=== PATIENT | female | born 1955 | race Caucasian/White ===

== ENCOUNTER 2016-11-01 20:01 | Inpatient (IN) | payer OTHER ==
[~2016-11-01] VITALS: Ht 157.5 cm; Wt 62.2 kg
[~2016-11-01 20:01] MED LIST: ESTR0.056 PO; FENO160T8 PO; PAR20T PO
[2016-11-01 20:54] LABS: Hematocrit 52.7 % (36.0-46.0); Hemoglobin 17.3 g/dL (12.2-16.2); Mean Corpuscular Hemoglobin 32.6 pg (28.0-32.0); Mean Corpuscular Hgb Conc. 32.8 g/dL (32.0-36.0); Mean Corpuscular Volume 99.6 fL (80.0-100.0); Mean Platelet Volume 9.6 fL (7.4-10.4); Platelet Count (auto) 188 10^3/uL (140-450); Red Cell Distribution Width 13.4 % (11.6-16.0); SUSPECT VIEW TRANSMISSION; White Blood Cell 18.7 10^3/uL (4.4-10.8)
[2016-11-01 21:00] LABS: Metamyelocytes % 0; Myelocytes % 0; Promyelocytes % 0; Reactive Lymphocytes 0
[2016-11-01] MEDS ORDERED: SODIUM CHLORIDE 0.9% 1,000 ML IV ONE (21:00)
[2016-11-01 21:05] LABS: Partial Thromboplastin Time 36.4 sec (22.64-33.71)
[2016-11-01 21:06] LABS: INR 1.36 (0.9-1.15)
[2016-11-01 21:10] LABS: Albumin 5.3 g/dL (3.4-5.0); BUN/Creatinine Ratio 11.7; Bilirubin, Total 0.6 mg/dL (0.2-1.0); Calcium 10.8 mg/dL (8.5-10.1); Potassium 3.5 mmol/L (3.5-5.1); Total Protein 9.7 g/dL (6.4-8.2)
[2016-11-01 21:20] LABS: B-Type Natriuretic Peptide 8.53 pg/mL (0-100)
[2016-11-01 21:22] LABS: Platelet Estimate Adequate
[2016-11-01 21:25] LABS: Temperature: 22.7 C (20.0-25.0)
[2016-11-01] MEDS ORDERED: cefTRIAXone 1GM/50ML D5W 50 ML IV ONE (23:00)
[2016-11-02 00:21] LABS: Urine RBC None Seen /hpf (0 - 4)
[2016-11-02 00:43] LABS: Urine Bilirubin Negative (Negative); Urine Color Yellow (Yellow); Urine Glucose TRACE mg/dL (Normal); Urine Granular Cast MANY /lpf (0); Urine Hyaline Cast MANY /lpf (0 - 2); Urine Ketone Negative (Negative); Urine Mucus FEW (None Seen); Urine Nitrite Negative (Negative); Urine Squamous Epithelial Cell FEW /hpf (<5); Urine Urobilinogen Normal (Negative)
[2016-11-02 00:47] LABS: Urine Blood 1+ /uL (Negative)
[2016-11-02] MEDS ORDERED: CHOL20007 PO (01:08)
[2016-11-02] MEDS ORDERED: ATOR10TA52 PO (01:08)
[2016-11-02] MEDS ORDERED: RIVA20TA PO (01:08)
[2016-11-02] MEDS ORDERED: OMEP20CA5 PO (01:08)
[2016-11-02] MEDS ORDERED: ONDANSETRON HCL 4 MG/2 ML VIAL IV ONE (01:30)
[2016-11-02] MEDS ORDERED: ONDANSETRON HCL 4 MG/2 ML VIAL IV PRN (03:30)
[2016-11-02] MEDS ORDERED: ACETAMINOPHEN 325 MG TAB PO PRN (03:30)
[2016-11-02] MEDS ORDERED: HYDROcodone-ACET 5/325MG TAB PO PRN (03:30)
[2016-11-02] MEDS ORDERED: MORPHINE SULF INJ 2 MG/ML SYRINGE 1ML IV PRN ×2 (03:30)
[2016-11-02] MEDS ORDERED: SODIUM CHLORIDE 0.9% 1,000 ML IV SCH (03:30)
[2016-11-02] MEDS ORDERED: TEMAZEPAM 15 MG CAP PO PRN (03:30)
[2016-11-02] MEDS ORDERED: NITROGLYCERIN 0.4 MG SL TAB SL PRN (03:30)
[2016-11-02] MEDS ORDERED: PATIENTS OWN MEDICATION (xarelto 20 MG) PO SCH (10:00)
[2016-11-02] MEDS: PANTOPRAZOLE SODIUM 40 MG/10 ML VIAL IV SCH (10:23)
[2016-11-02] MEDS: HYDROXYCHLOROQUINE SULFATE 200 MG TAB PO SCH (10:23)
[2016-11-02] MEDS: PARoxetine 20 MG TAB PO SCH (10:23)
[2016-11-02 12:07] VITALS: BP 138/90
[2016-11-02] MEDS: SOD CHL 0.9%/ KCL 20MEQ 1,000 ML IV SCH ×2 (15:30→23:50)
[2016-11-02 16:25] LABS: Basophils # (auto) 0 uL; Basophils % (auto) 0.1 % (0.0-2.0); Eosinophils # (auto) 0 uL; Eosinophils % (auto) 0.1 % (0.0-7.0); Hemoglobin 16.1 g/dL (12.2-16.2); Lymphocytes # (auto) 0.8 uL; Lymphocytes % (auto) 7.6 % (10.0-50.0); Mean Corpuscular Hemoglobin 32.6 pg (28.0-32.0); Mean Corpuscular Hgb Conc. 32.9 g/dL (32.0-36.0); Mean Corpuscular Volume 99.1 fL (80.0-100.0); Mean Platelet Volume 9.9 fL (7.4-10.4); Monocytes # (auto) 0.8 uL; Monocytes % (auto) 8.1 % (0.0-12.0); Neutrophils # (auto) 8.4 uL; Neutrophils % (auto) 84.1 % (37.0-80.0); Platelet Count (auto) 162 10^3/uL (140-450); Red Cell Distribution Width 13.1 % (11.6-16.0)
[2016-11-02 16:45] LABS: Albumin 4.4 g/dL (3.4-5.0); BUN/Creatinine Ratio 15.3; Calcium 8.3 mg/dL (8.5-10.1); Potassium 3.8 mmol/L (3.5-5.1)
[2016-11-02 16:47] LABS: Bilirubin, Total 0.4 mg/dL (0.2-1.0); Total Protein 8.8 g/dL (6.4-8.2)
[2016-11-02 17:00] VITALS: BP 155/98
[2016-11-02] MEDS ORDERED: RIVAROXABAN 20 MG TAB PO SCH (18:00)
[2016-11-02 18:31] LABS: Magnesium 0.6 mg/dL (1.6-2.6)
[2016-11-02] MEDS ORDERED: MAGNESIUM OXIDE 400 MG TAB PO ONE (18:45)
[2016-11-02] MEDS: MAGNESIUM SULFATE 1GM/100ML 100 ML IV SCH ×3 (18:53→22:55)
[2016-11-02] MEDS ORDERED: cefTRIAXone 1GM/50ML D5W 50 ML IV SCH (21:00)
[2016-11-02 22:00] VITALS: BP 133/79
[2016-11-02] MEDS ORDERED: ATORVASTATIN 20 MG TAB PO SCH (22:00)
[2016-11-03] MEDS: MAGNESIUM SULFATE 1GM/100ML 100 ML IV SCH (00:12)
[2016-11-03] MEDS: SOD CHL 0.9%/ KCL 20MEQ 1,000 ML IV SCH ×2 (01:54→08:10)
[2016-11-03 05:54] VITALS: BP 150/84
[2016-11-03 06:43] LABS: Basophils # (auto) 0 uL; Basophils % (auto) 0.4 % (0.0-2.0); Eosinophils # (auto) 0 uL; Eosinophils % (auto) 0.5 % (0.0-7.0); Hematocrit 48.8 % (36.0-46.0); Hemoglobin 16.1 g/dL (12.2-16.2); Lymphocytes # (auto) 1.1 uL; Lymphocytes % (auto) 13.5 % (10.0-50.0); Mean Corpuscular Hemoglobin 32.7 pg (28.0-32.0); Mean Platelet Volume 9.9 fL (7.4-10.4); Monocytes # (auto) 0.7 uL; Monocytes % (auto) 8.9 % (0.0-12.0); Neutrophils # (auto) 6.1 uL; Neutrophils % (auto) 76.7 % (37.0-80.0); Platelet Count (auto) 149 10^3/uL (140-450); Red Cell Distribution Width 13.3 % (11.6-16.0); White Blood Cell 7.9 10^3/uL (4.4-10.8)
[2016-11-03 07:35] LABS: Albumin 4.2 g/dL (3.4-5.0); BUN/Creatinine Ratio 16.7; Bilirubin, Total 0.4 mg/dL (0.2-1.0); Phosphorus 3.1 mg/dL (2.6-4.90); Potassium 3.3 mmol/L (3.5-5.1); Total Protein 8.6 g/dL (6.4-8.2); Uric Acid 7.1 mg/dL (2.6-6.0)
[2016-11-03] MEDS: HYDROXYCHLOROQUINE SULFATE 200 MG TAB PO SCH (10:43)
[2016-11-03] MEDS: PARoxetine 20 MG TAB PO SCH (10:43)
[2016-11-03] MEDS: PANTOPRAZOLE SODIUM 40 MG/10 ML VIAL IV SCH (10:43)
[2016-11-03 10:51] VITALS: BP 147/92
[2016-11-03 11:03] VITALS: BP 147/92
[2016-11-04] MEDS ORDERED: RIVAROXABAN 20 MG TAB PO SCH (07:00)
== END 2016-11-03 12:45 | disposition home or self-care (01) | DRG 871 ==
LOC: ER 20:06 → TELE 20:07 → TELE-E-ADS 11-02 11:29 → TELE-EAST 11-02 14:54
PROVIDERS: ADMIT Nurse Practitioner; ATTEND Internal Medicine
DX: A41.9 Sepsis, unspecified organism (principal); N17.0 Acute kidney failure with tubular necrosis; K55.9 Vascular disorder of intestine, unspecified; K29.00 Acute gastritis without bleeding; E78.5 Hyperlipidemia, unspecified; E86.0 Dehydration; M32.9 Systemic lupus erythematosus, unspecified; N18.3 Chronic kidney disease, stage 3 (moderate); E83.42 Hypomagnesemia; I12.9 Hypertensive chronic kidney disease with stage 1 through stage 4 chronic kidney disease, or unspecified chronic kidney disease; F41.9 Anxiety disorder, unspecified; F32.9 Major depressive disorder, single episode, unspecified; K52.9 Noninfective gastroenteritis and colitis, unspecified; M19.90 Unspecified osteoarthritis, unspecified site; Z90.49 Acquired absence of other specified parts of digestive tract; Z82.49 Family history of ischemic heart disease and other diseases of the circulatory system; Z93.3 Colostomy status; Z88.1 Allergy status to other antibiotic agents; Z88.2 Allergy status to sulfonamides; Z88.8 Allergy status to other drugs, medicaments and biological substances; Z79.899 Other long term (current) drug therapy
CPT/HCPCS: 36415; 71010; 74176; 76775; 80053; 81001; 82570; 83036; 83690; 83735; 83880; 84100; 84156; 84300; 84443; 84484; 84550; 85007; 85025; 85027; 85610; 85730; 87040; 93005; 94761; 96361; 96365; 96375; C9113; J0696; J2405

== ENCOUNTER 2023-03-04 10:51 | Emergency (ER) | payer OTHER ==
[~2023-03-04] VITALS: Ht 157.5 cm; Wt 62.0 kg
[~2023-03-04 10:51] MED LIST changes: +ATOR10TA52 PO; +CHOL20007 PO; +OMEP20CA74 PO; +RIVA20TA PO
[2023-03-04 11:19] LABS: Basophils # (auto) 0 10 ^3/uL (0-0.2); Basophils % (auto) 0.5 % (0.0-2.0); Eosinophils # (auto) 0.1 10 ^3/uL (0-0.8); Eosinophils % (auto) 0.9 % (0.0-7.0); Hemoglobin 15.6 g/dL (12.2-16.2); Lymphocytes # (auto) 1.3 10 ^3/uL (0.4-5.4); Lymphocytes % (auto) 22.8 % (10.0-50.0); Mean Corpuscular Hgb Conc. 33.9 g/dL (32.0-36.0); Mean Corpuscular Volume 94.3 fL (80.0-100.0); Monocytes # (auto) 0.4 10 ^3/uL (0-1.3); Monocytes % (auto) 7.6 % (0.0-12.0); Neutrophils % (auto) 68.2 % (37.0-80.0); Nucleated Red Blood Cells % 0.1 %; Red Blood Cells 4.88 10^6/uL (4.0-5.20); Red Cell Distribution Width 13.4 % (11.8-14.3); White Blood Cell 5.8 10^3/uL (4.4-10.8)
[2023-03-04 11:37] LABS: Albumin 4.8 g/dL (3.4-5.0); Calcium 10.1 mg/dL (8.5-10.1); Potassium 3.6 mmol/L (3.5-5.1)
[2023-03-04 11:39] LABS: Urine Bacteria NONE SEEN /hpf (None Seen); Urine Blood Negative /uL (Negative); Urine Mucus FEW (None Seen); Urine Specific Gravity 1.019 (1.001-1.035); Urine WBC 3 /hpf (0 - 5)
[2023-03-04 11:40] LABS: BUN/Creatinine Ratio 22.7 (10.0-20.0); Bilirubin, Total 0.6 mg/dL (0.2-1.0); Total Protein 7.7 g/dL (6.4-8.2)
[2023-03-04] MEDS ORDERED: SODIUM CHLORIDE 0.9% 1,000 ML IV ONE (12:15)
[2023-03-04] MEDS ORDERED: ONDANSETRON HCL 4 MG/2 ML VIAL IV ONE (12:15)
[2023-03-04] MEDS ORDERED: CEPH-510 PO (14:24)
[2023-03-04] MEDS ORDERED: METR500T PO (14:24)
[2023-03-04 14:37] VITALS: BP 170/73
== END 2023-03-04 14:38 | disposition home or self-care (01) ==
LOC: ER 10:51
DX: K52.9 Noninfective gastroenteritis and colitis, unspecified (principal); E78.5 Hyperlipidemia, unspecified; Z88.1 Allergy status to other antibiotic agents; Z88.2 Allergy status to sulfonamides
CPT/HCPCS: 36415; 71045; 74176; 80053; 81001; 84484; 85025; 93005; 96361; 96374; 99285; J2405; J7030

== ENCOUNTER 2024-01-12 23:24 | Emergency (ER) | payer OTHER ==
[~2024-01-12] VITALS: Ht 157.5 cm; Wt 63.7 kg
[~2024-01-12 23:24] MED LIST changes: +CEPH-510 PO; +FENO160T PO; -FENO160T8 PO; +METR500T PO
[2024-01-13 00:10] VITALS: O2SAT 100
[2024-01-13] MEDS: ONDANSETRON HCL 4 MG/2 ML VIAL IV ONE (00:14)
[2024-01-13] MEDS: MORPHINE SULFATE 4 MG/ML SYR/VIAL IV ONE (00:14)
[2024-01-13 00:36] LABS: Basophils # (auto) 0 10 ^3/uL (0-0.2); Basophils % (auto) 0.8 % (0.0-2.0); Eosinophils # (auto) 0 10 ^3/uL (0-0.8); Eosinophils % (auto) 0.8 % (0.0-7.0); Hematocrit 43.3 % (36.0-46.0); Hemoglobin 14.5 g/dL (12.2-16.2); Lymphocytes # (auto) 0.8 10 ^3/uL (0.4-5.4); Lymphocytes % (auto) 25.5 % (10.0-50.0); Mean Corpuscular Hemoglobin 31.7 pg (28.0-32.0); Mean Corpuscular Hgb Conc. 33.6 g/dL (32.0-36.0); Mean Corpuscular Volume 94.4 fL (80.0-100.0); Monocytes # (auto) 0.3 10 ^3/uL (0-1.3); Monocytes % (auto) 9.3 % (0.0-12.0); Neutrophils # (auto) 1.9 10 ^3/uL (1.6-8.6); Neutrophils % (auto) 63.6 % (37.0-80.0); Red Blood Cells 4.58 10^6/uL (4.0-5.20); Red Cell Distribution Width 13.5 % (11.8-14.3); White Blood Cell 3.1 10^3/uL (4.4-10.8)
[2024-01-13 00:52] LABS: Alanine Aminotransferase 16 U/L (7-40); Albumin 4.9 g/dL (3.2-4.8); Alkaline Phosphatase 53 U/L (46-116); Anion Gap 11 (5-15); Aspartate Aminotransferase 23 U/L (13-40); BUN/Creatinine Ratio 23.1 (10.0-20.0); Bilirubin, Total 0.6 mg/dL (0.2-1.0); Blood Urea Nitrogen 15 mg/dL (9-23); Carbon Dioxide 22 mmol/L (20-30); Chloride 103 mmol/L (98-107); Glucose 157 mg/dL (74-106); Potassium 3.5 mmol/L (3.5-5.1); Sodium 136 mmol/L (136-145); Total Protein 7.5 g/dL (5.7-8.2)
[2024-01-13 01:40] LABS: Urine Bacteria NONE SEEN /hpf (None Seen); Urine Blood Negative /uL (Negative); Urine Clarity Clear (Clear); Urine Color Yellow (Yellow); Urine Mucus FEW (None Seen); Urine Protein, UAD 2+ (Negative); Urine Specific Gravity 1.026 (1.001-1.035); Urine Urobilinogen Normal (Negative); Urine WBC 3 /hpf (0 - 5); Urine pH 5.5 (5.0-8.0)
[2024-01-13] MEDS ORDERED: NITR-87 PO (02:36)
[2024-01-13] MEDS ORDERED: ACET-1304 PO (02:36)
[2024-01-13 03:03] VITALS: BP 193/88; PULSE 74; RESP 20
[2024-01-13] MEDS: hydrALAZINE HCL 20 MG/ML VL IV ONE (03:04)
[2024-01-14] MEDS ORDERED: TRAM50TA2 PO (16:55)
== END 2024-01-13 03:10 | disposition home or self-care (01) ==
LOC: ER 23:24
DX: N39.0 Urinary tract infection, site not specified (principal); N83.291 Other ovarian cyst, right side; E78.5 Hyperlipidemia, unspecified; Z90.49 Acquired absence of other specified parts of digestive tract; Z90.710 Acquired absence of both cervix and uterus; Z88.0 Allergy status to penicillin; Z88.2 Allergy status to sulfonamides
CPT/HCPCS: 36415; 74176; 80053; 81001; 85025; 87086; 96374; 96375; 99285; J2270; J2405; J7030; J7040

== ENCOUNTER 2024-01-14 11:58 | Emergency (ER) | payer OTHER ==
[~2024-01-14] VITALS: Ht 157.5 cm; Wt 60.4 kg
[~2024-01-14 11:58] MED LIST changes: +ACET-1304 PO; +NITR-87 PO
[2024-01-14 13:34] LABS: Chloride 101 mmol/L (98-107); Potassium 3.5 mmol/L (3.5-5.1); Sodium 139 mmol/L (136-145)
[2024-01-14 13:35] LABS: Anion Gap 10 (5-15); Calcium 10.6 mg/dL (8.5-10.1); Carbon Dioxide 28 mmol/L (20-30)
[2024-01-14 13:37] LABS: Basophils # (auto) 0 10 ^3/uL (0-0.2); Basophils % (auto) 0.5 % (0.0-2.0); Eosinophils # (auto) 0 10 ^3/uL (0-0.8); Eosinophils % (auto) 0.1 % (0.0-7.0); Hematocrit 48.4 % (36.0-46.0); Hemoglobin 16.2 g/dL (12.2-16.2); Lymphocytes # (auto) 0.9 10 ^3/uL (0.4-5.4); Lymphocytes % (auto) 13.3 % (10.0-50.0); Mean Corpuscular Hemoglobin 31.9 pg (28.0-32.0); Mean Corpuscular Hgb Conc. 33.4 g/dL (32.0-36.0); Mean Corpuscular Volume 95.5 fL (80.0-100.0); Monocytes # (auto) 0.6 10 ^3/uL (0-1.3); Monocytes % (auto) 8.1 % (0.0-12.0); Neutrophils # (auto) 5.3 10 ^3/uL (1.6-8.6); Red Blood Cells 5.07 10^6/uL (4.0-5.20); Red Cell Distribution Width 13.6 % (11.8-14.3); White Blood Cell 6.8 10^3/uL (4.4-10.8)
[2024-01-14 13:40] LABS: BUN/Creatinine Ratio 11.2 (10.0-20.0); Blood Urea Nitrogen 10 mg/dL (9-23); Glucose 159 mg/dL (74-106)
[2024-01-14 13:55] LABS: Urine Bacteria NONE SEEN /hpf (None Seen); Urine Blood TRACE /uL (Negative); Urine Clarity Clear (Clear); Urine Color Yellow (Yellow); Urine Mucus FEW (None Seen); Urine Protein, UAD 3+ (Negative); Urine Specific Gravity 1.038 (1.001-1.035); Urine Urobilinogen Normal (Negative); Urine WBC 3 /hpf (0 - 5); Urine pH 6.5 (5.0-8.0)
[2024-01-14 14:29] LABS: Lipase 55 U/L (12-53)
[2024-01-14 15:03] VITALS: BP 180/88; PULSE 73; RESP 16; TEMP 98; O2SAT 94
[2024-01-14] MEDS: METOCLOPRAMIDE HCL 5MG/ml INJ 2ml VIAL IV ONE (15:05)
[2024-01-14] MEDS: KETOROLAC TROMETH 30 MG/ML 1ML VIAL IV ONE (15:05)
[2024-01-14] MEDS: SODIUM CHLORIDE 0.9% 500 ML IVB ONE (15:06)
[2024-01-14] MEDS: SODIUM CHLORIDE 0.9% 1,000 ML IV ONE (15:27)
[2024-01-14] MEDS ORDERED: TRAM50TA2 PO (16:55)
== END 2024-01-14 17:12 | disposition home or self-care (01) ==
LOC: ER 11:58
DX: R10.9 Unspecified abdominal pain (principal); E78.5 Hyperlipidemia, unspecified; Z90.49 Acquired absence of other specified parts of digestive tract; Z87.442 Personal history of urinary calculi
CPT/HCPCS: 36415; 80048; 81001; 83690; 85025; 93005; 96361; 96374; 96375; 99284; J1885; J2765; J7030; J7040